=== PATIENT | female | born 1975 | race American Indian/Alaskan Native ===

== ENCOUNTER 2018-07-15 06:46 | Day surgery (SDC) | payer BC, MEDICAID ==
[2018-07-15 07:56] LABS: Basophils % (Auto) 0.6 % (0.0-1.8); Eosinophils # (Auto) 0.1 K/mm3 (0.0-0.4); Eosinophils % (Auto) 0.9 % (0.0-4.3); Hematocrit 34.7 % (30.3-42.9); Hemoglobin 11.7 gm/dl (10.1-14.3); Lymphocytes # (Auto) 3.4 K/mm3 (1.2-5.4); Lymphocytes % (Auto) 45.6 % (13.4-35.0); Mean Corpuscular HGB Conc 34 % (30-34); Mean Corpuscular Hemoglobin 30 pg (28-32); Mean Corpuscular Volume 90 fl (79-97); Monocytes # (Auto) 0.7 K/mm3 (0.0-0.8); Monocytes % (Auto) 8.9 % (0.0-7.3); Platelet Count 223 K/mm3 (140-440); Red Blood Count 3.86 M/mm3 (3.65-5.03)
[2018-07-15] MEDS ORDERED: NACL 0.9% 500 ML 500 ML IV SCH (08:00)
[2018-07-15 08:08] LABS: BUN/Creatinine Ratio 18; Blood Urea Nitrogen 11 mg/dL (7-17); Calcium 8.7 mg/dL (8.4-10.2); Hemolysis Index 3; INR 1.05 (0.87-1.13)
[2018-07-15] MEDS ORDERED: VERSED ONE (09:27)
[2018-07-15] MEDS ORDERED: HEPARIN/NS 5000 UNIT/500ML(CATH LAB) 1,000 ML IR ONE (09:27)
[2018-07-15] MEDS ORDERED: SUBLIMAZE ONE (09:27)
[2018-07-15] MEDS ORDERED: HEPARIN 10,000 UNITS/10 ML ONE (09:27)
[2018-07-15] MEDS ORDERED: XYLOCAINE 2% INFILTRATI ONE (09:27)
[2018-07-15] MEDS ORDERED: CALAN ONE (09:27)
[2018-07-15] MEDS ORDERED: NITROGLYCERIN SYRINGE 3 ML ONE (09:28)
--- NOTE | 2018-07-15 12:11 | Short Stay Summary ---
Short Stay Documentation Date of service: 07/15/18 - History H&P: obtained from office - Allergies and Medications Current Medications: Allergies latex Allergy (Unverified 07/15/18 06:48) Itching,SWELLING Penicillins Allergy (Unverified 07/15/18 06:48) Itching,SWELLING,HIVES prednisone Allergy (Unverified 07/15/18 06:48) Itching,HIVES Sulfa (Sulfonamide Antibiotics) Allergy (Unverified 07/15/18 06:48) Itching,SWELLING,HIVES Home Medications Medication Instructions Recorded Confirmed Last Taken Type Amlodipine Besylate [Norvasc] 2.5 mg PO DAILY 07/15/18 07/15/18 07/15/18 06:15 History Aspirin [Lo-Dose Aspirin EC] 81 mg PO DAILY 07/15/18 07/15/18 07/15/18 06:15 History Cetirizine HCl [Zyrtec] 10 mg PO DAILY 07/15/18 07/15/18 07/14/18 History Cod Liver Oil 1 each PO DAILY 07/15/18 07/15/18 07/14/18 History Linagliptin [Tradjenta] 5 mg PO DAILY 07/15/18 07/15/18 07/14/18 History Metoprolol [Lopressor] 25 mg PO DAILY 07/15/18 07/15/18 07/15/18 06:15 History Montelukast [Singulair] 10 mg PO QPM 07/15/18 07/15/18 1 Week Ago History ~07/08/18 Omeprazole 20 mg PO DAILY 07/15/18 07/15/18 07/14/18 History Active Medications Sodium Chloride (Nacl 0.9% 500 Ml) 500 mls @ 50 mls/hr IV DIRECT ESTELLA Stop: 07/15/18 17:59 Last Admin: 07/15/18 07:49 Dose: 50 mls/hr - Physical exam General appearance: no acute distress Integumentary: no rash HEENT: Atraumatic Lungs: Clear to auscultation Breasts: deferred Heart: Regular rate Gastrointestinal: normal Female Genitourinary: deferred Rectal Exam: deferred Extremities: no ischemia Neurological: Normal gait - Brief post op/procedure progress note Date of procedure: 07/15/18 Pre-op diagnosis: Chest Pain Post-op diagnosis: same Procedure: LHC and LV gram Anesthesia: MAC Findings: See report Surgeon: JOLEEN VAZQUEZ Estimated blood loss: none Pathology: none Condition: stable - Hospital course Hospital course: Uneventful - Disposition Condition at discharge: Good Disposition: DC-01 TO HOME OR SELFCARE Short Stay Discharge Plan Activity: no restrictions Weight Bearing Status: Weight Bear as Tolerated Diet: low salt, diabetic Follow up with: ZAHRA SHORT MD [Primary Care Provider] - 7 Days
--- NOTE | 2018-07-15 12:16 | Cardiac Catherization Report ---
LEFT HEART CATHETERIZATION ORDERING PHYSICIAN: Shaji Warren MD INDICATION FOR PROCEDURE: Persistent chest pain despite previously normal myocardial perfusion stress test. PROCEDURES PERFORMED: 1. Selective left and right coronary angiography. 2. Left ventriculography. DESCRIPTION OF PROCEDURE: After obtaining the consent, the patient was draped using sterile technique. A 2% lidocaine was injected into the right wrist. A 5-Kazakh vascular sheath was inserted into the right radial artery. A 5-Kazakh JL3.5 catheter was used to selectively engage left coronary artery. A 5-Kazakh JR4 catheter was used to selectively engage right coronary artery. A 5-Kazakh JR4 catheter was used to hand inject the left ventriculogram. No complications occurred during the procedure. Hemostasis was achieved at the end of the procedure using manual pressure. SPECIMEN REMOVED: None. Estimated blood loss was minimal. COMPLICATIONS: No complications. ESTIMATED BLOOD LOSS: Minimal. Sedation administered 1 mg of IV Versed and 25 mcg of IV fentanyl. Physician and the patient sedation [id number] start time: 11:37 a.m. Physician and the patient [id number] end time: 11:45 a.m. Total sedation time is 8 minutes. FINDINGS: HEMODYNAMICS: Aortic pressure 139/78. LV systolic pressure 140 mmHg, LVEDP 16 mmHg. CARDIAC STRUCTURES: Normal left ventricular size and systolic function with an ejection fraction estimated at 60%. CORONARY ANATOMY: 1. Left main is angiographically normal. 2. LAD is angiographically normal. 3. Left circumflex artery is angiographically normal. 4. Right coronary artery is angiographically normal. 5. This is a right dominant circulation. IMPRESSION: 1. Angiographically normal coronary circulation. 2. Normal left ventricular size and systolic function. 3. LVEDP measured at 60 mmHg. RECOMMENDATIONS: Follow up with referring guest services assistant. JOB# [id number] KASIA/JANET
[2018-07-15 14:59] VITALS: BP 144/91
== END 2018-07-15 15:00 | disposition home or self-care (01) ==
LOC: CATHLABREC 06:46
PROVIDERS: ATTEND Internal Medicine
DX: R07.89 Other chest pain (principal); I10 Essential (primary) hypertension; G47.30 Sleep apnea, unspecified; F41.9 Anxiety disorder, unspecified; Z88.0 Allergy status to penicillin; Z88.2 Allergy status to sulfonamides; Z91.040 Latex allergy status; Z79.899 Other long term (current) drug therapy; Z79.01 Long term (current) use of anticoagulants; Z98.890 Other specified postprocedural states; Z98.51 Tubal ligation status; Z90.710 Acquired absence of both cervix and uterus; Z87.440 Personal history of urinary (tract) infections
CPT/HCPCS: 36415; 80048; 85025; 85610; 85730; 93005; 93010; 93458; 99156; C1894; J1644; J2250; J3010; J7040; Q9967

== ENCOUNTER 2022-03-22 08:14 | Outpatient (CLI) | payer BC, MEDICAID | END 2022-03-22 08:15 | disposition home or self-care (01) | LOC: LABHHL 08:14 | PROVIDERS: ATTEND Otolaryngology Otology & Neurotology | DX: J34.2 Deviated nasal septum (principal); J34.3 Hypertrophy of nasal turbinates; J32.0 Chronic maxillary sinusitis | CPT/HCPCS: 88305; 88311 ==